=== PATIENT | male | born 1990 | race Caucasian/White ===

== ENCOUNTER 2017-10-29 16:43 | Emergency (ER) | payer OTHER ==
[~2017-10-29] VITALS: Ht 182.9 cm; Wt 63.5 kg
== END 2017-10-29 19:08 | disposition home or self-care (01) ==
LOC: ER 16:43
DX: T23.212A Burn of second degree of left thumb (nail), initial encounter (principal); T22.211A Burn of second degree of right forearm, initial encounter; W22.12XA Striking against or struck by front passenger side automobile airbag, initial encounter; Y93.89 Activity, other specified; Y92.488 Other paved roadways as the place of occurrence of the external cause; Y99.8 Other external cause status